=== PATIENT | male | born 1980 | race Caucasian/White ===

== ENCOUNTER 2024-06-08 08:44 | Day surgery (SDC) | payer OTHER ==
[~2024-06-08] VITALS: Ht 182.9 cm; Wt 96.3 kg
[~2024-06-08 08:44] MED LIST: IBLOOD GLUCOSE TEST STRIP 1 EA TEST VI PRN; LACTATED RINGER'S 1,000 ML IV SCH; LIDOCAINE HCL 1% 5 ML SDV INJ ONE; METFORMIN HCL500 M1 PO; MIDAZOLAM HCL 5 MG/5 ML VIAL IV PRN; OMEPRAZOLE20 MG PO; fentaNYL citrate 100 MCG/2 ML VIAL IV PRN
[2024-06-08 09:01] VITALS: BP 134/76
[2024-06-08] MEDS ORDERED: fentaNYL citrate 100 MCG/2 ML VIAL ONE (09:09)
[2024-06-08] MEDS ORDERED: MIDAZOLAM HCL 5 MG/5 ML VIAL ONE (09:09)
--- NOTE | 2024-06-08 10:05 | NUR ---
06/08/24 1005 Angelique Dickens 0926-PATIENT ARRIVED TO PACU ON RA RR EVEN. PATIENT LAYING LEFT LATERAL DROWSY AROUSES TO VERBAL STIMULI DENIES PAIN OR NAUSEA. ABDOMEN SOFT. IVF INFUSING. ENCOURAGED TO PASS GAS 1005-PATIENT SLEEPING RA 96% RR EVEN.
[2024-06-08 11:03] VITALS: BP 111/79
--- NOTE | 2024-06-09 06:01 | OR ---
[facility] [address] [place], [place] [address] Signed DATE OF OPERATION: 06/08/2024 SURGEON: Waleska Orosco MD PREOPERATIVE DIAGNOSIS: Irritable bowel syndrome with diarrhea. POSTOPERATIVE DIAGNOSIS: Unremarkable colonoscopy. PROCEDURE: Colonoscopy with random colon biopsies. ESTIMATED BLOOD LOSS: None. INDICATIONS: Abhijit is a 44-year-old gentleman asked to see me for his initial colonoscopy. He is describing irritable bowel syndrome with diarrhea back to his teenage years. He was having right lower quadrant abdominal pain earlier this year. He had a CT scan of the abdomen and pelvis. He has some fatty liver and a very tiny umbilical hernia and small asymptomatic bilateral inguinal hernias containing fat. He has no family history of colon cancer or polyps. There is no inflammatory bowel disease in the family. He said he has been online reading and has convinced himself that he is at increased risk for colon cancer. He and his primary care provider wanted him to come for a colonoscopy. In the office, I gave him a pamphlet on colonoscopy. We had reviewed the nature of the test. There is risk including, but not limited to gas bloating, crampy abdominal pain, bleeding, perforation requiring surgery, and missed diagnosis. We also reviewed the written instructions for the bowel prep line by line. He also understands the need for IV conscious sedation. An adult person has to take him home afterwards. He had expressed understanding and wished to proceed. PROCEDURE IN DETAIL: Abhijit was taken into our endoscopy suite and placed in the left lateral decubitus position. He was given a total of 5 mg of Versed and 125 mcg of fentanyl to cover the case. A digital rectal exam was performed and this was unremarkable. He had good sphincter tone. There were no masses. No external hemorrhoids. The adult colonoscope was introduced and advanced quite readily up into the cecum without much difficulty. He needed just a little extra sedation and some mild abdominal compression to get the scope directly into the cecum itself. His prep was quite good. We could easily see the Electronically Signed By: WALESKA OROSCO MD 06/09/24 0601 PATIENT NAME: ABHIJIT CHEN OPERATIVE REPORT DATE OF : 84 REPORT #: [id number] PHYSICIAN: WALESKA OROSCO MD PCP: JAMSHID STARK PAC REPORT IS CONFIDENTIAL AND NOT TO BE RELEASED WITHOUT AUTHORIZATION [facility] [address] [place] [id number] Signed appendiceal orifice and ileocecal valve. The scope was then slowly withdrawn. We took pictures throughout for photodocumentation. We took several random biopsies throughout for the history of diarrhea. We saw no inflammatory changes. No diverticulosis. No polyps. The rectum was unremarkable. Upon retroflexion of scope, there was no pathology above the anal canal. After this, the gas was suctioned out. The colonoscope removed. Kamar tolerated the procedure quite well. RECOMMENDATIONS: I will see Kamar back in my office in 7 to 14 days to review his biopsy results. It looks like he has irritable bowel syndrome with diarrhea as described above. Waleska Orosco MD ALB/MODL /[id number] cc: CASSIDY Pike MD Copies: JAMSHID STARK ANDREW L MD ~ Electronically Signed By: WALESKA OROSCO MD 06/09/24 0601 PATIENT NAME: ABHIJIT CHEN OPERATIVE REPORT DATE OF : 84 REPORT #: [id number] PHYSICIAN: WALESKA OROSCO MD PCP: JAMSHID STARK REPORT IS CONFIDENTIAL AND NOT TO BE RELEASED WITHOUT AUTHORIZATION
--- NOTE | 2024-06-10 14:49 | PATH ---
[facility] [address] [place], [place] [address] Signed SPECIMEN(S): A RANDOM COLON BIOPSIES SPECIMEN SOURCE: A. RANDOM COLON BIOPSIES CLINICAL HISTORY: Screening IBS, diarrhea FINAL PATHOLOGIC DIAGNOSIS: Colon, biopsy: - Colonic mucosa with no significant pathologic changes BRP MICROSCOPIC EXAMINATION: Histologic sections of all submitted blocks are examined by light microscopy. These findings, together with the gross examination, support the pathologic diagnosis. GROSS DESCRIPTION: The specimen, labeled and designated "Elie, per the requisition random colon biopsy," is received in formalin and consists of 4 brand tissue fragments ranging from 0.2 to 0.6 cm in greatest dimension. The specimen is entirely submitted in cassette A1. AA (under the direct supervision of a pathologist) The Gross Description was prepared using a voice recognition system. The report was reviewed for accuracy; however, sound-alike word errors, addition and/or deletions may occur. If there is any question about this report, please contact Client Services. ADDITIONAL NOTES: Immunohistochemical and/or in situ hybridization studies if performed in this case included appropriate positive controls that reacted as expected. This test was developed and its performance characteristics determined by [facility]. It has not been cleared or approved by the U.S. Food and Drug Administration. The FDA has determined that such clearance or approval is not necessary. This test is used for clinical purposes. It should not be regarded as investigational or for research. [facility] is certified under the Clinical Laboratory Improvement Amendments of 1988 (CLIA) as qualified to perform high complexity clinical laboratory testing. PATIENT NAME: SOFIYA CHEN PATHOLOGY DATE OF : 84 REPORT #: [id number] PHYSICIAN: JASPER SCHULER PCP: JAMSHID STARK PAC REPORT IS CONFIDENTIAL AND NOT TO BE RELEASED WITHOUT AUTHORIZATION [address] [place], [place] [address] Signed PERFORMING LABORATORY: Technical component was performed by [facility], [address] [place] [address] (CLIA# [id number]). [facility] [address] [id number] Diagnostician: Cristian Allan MD Pathologist Electronically Signed 06/10/2024 Copies: ~ PATIENT NAME: SOFIYA CHEN PATHOLOGY DATE OF : 84 REPORT #: [id number] PHYSICIAN: JASPER SCHULER PCP: JAMSHID STARK PAC REPORT IS CONFIDENTIAL AND NOT TO BE RELEASED WITHOUT AUTHORIZATION
== END 2024-06-08 11:10 | disposition home or self-care (01) ==
LOC: DS 08:44 → DSVR 08:45 → DS 08:45
PROVIDERS: ATTEND Colon & Rectal Surgery
PROC: 0DBE8ZX Excision of Large Intestine, Via Natural or Artificial Opening Endoscopic, Diagnostic (ICD-10-PCS; principal; 2024-06-08 09:45)
DX: K58.0 Irritable bowel syndrome with diarrhea (principal); K76.0 Fatty (change of) liver, not elsewhere classified; E78.5 Hyperlipidemia, unspecified; R73.03 Prediabetes; E66.9 Obesity, unspecified; K42.9 Umbilical hernia without obstruction or gangrene; K40.20 Bilateral inguinal hernia, without obstruction or gangrene, not specified as recurrent; Z79.84 Long term (current) use of oral hypoglycemic drugs; Z79.899 Other long term (current) drug therapy
CPT/HCPCS: 99153; G0500; J2250; J3010; J7121